=== PATIENT | male | born 1955 | race Caucasian/White ===

== ENCOUNTER 2023-04-24 09:11 | Emergency (ER) | payer MEDICARE, SELFPAY ==
[2023-04-24] VITALS (24 sets, daily range): BP systolic 148–200; BP diastolic 87–104; PULSE 59–76; RESP 10–25; TEMP 36.6; O2SAT 96–100; BMI 27.6
--- NOTE | 2023-04-24 09:29 | ECG_ITS ---
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
--- NOTE | 2023-04-24 09:30 | CT_ITS ---
The [address] [address] Patient Name: СВЕТЛАНА ARTIS MRN: [id number] date: 1955 Sex: M Assigned Patient Location: ER Current Patient Location: ED.MAIN Accession/Order Number: [id number] Exam Date: 04/24/2023 09:45 Report Date: 04/24/2023 10:21 At the request of: RUTH CHRISTOPHER Procedure: CT head/brain wo con CT head without contrast, 04/24/2023. HISTORY: Right-sided numbness. COMPARISON: CT head without contrast, 03/15/2015. TECHNIQUE: Noncontrast axial CT images obtained through the head. Reconstructions obtained in the sagittal and coronal planes. Dose reduction techniques were achieved by using automated exposure control and/or adjustment of mA and/or kV according to patient size and/or use of iterative reconstruction technique. FINDINGS: Paranasal sinuses are clear. Mastoid air cells are clear. Skull base is intact. No skull lesion. Orbital contents are normal. Extracranial soft tissue structures are unremarkable. Mild generalized cerebral volume loss stable. Small chronic lacunar infarct left thalamus measuring 6 mm stable. No subdural fluid collection. No hydrocephalus. No shift of midline. No acute hemorrhage. No masses. Cross matter and white matter differentiation is intact. CT/CT head/brain wo con IMPRESSION: 1. No acute intracranial findings. No hemorrhage. No mass. 2. Small chronic lacunar infarct in the left thalamus measuring 6 mm stable. Electronically authenticated by: LUZ ELENA WALKER Date: 04/24/2023 10:21
--- NOTE | 2023-04-24 09:30 | CT_ITS ---
[address] [address] Patient Name: СВЕТЛАНА ARTIS MRN: [id number] date: 1955 Sex: M Assigned Patient Location: ER Current Patient Location: Accession/Order Number: [id number] Exam Date: 04/24/2023 09:45 Report Date: 04/24/2023 11:10 At the request of: RUTH CHRISTOPHER Procedure: CT cervical spine wo con CT CERVICAL SPINE WITHOUT CONTRAST, 04/24/2023. HISTORY: Right-sided numbness. COMPARISON: None. TECHNIQUE: Noncontrast axial CT images obtained through the cervical spine. Reconstructions were obtained in the sagittal and coronal planes. Dose reduction techniques were achieved by using automated exposure control and/or adjustment of mA and/or kV according to patient size and/or use of iterative reconstruction technique. FINDINGS: Cervical spine alignment normal. No subluxation. Odontoid process is intact. Facet joints are intact. Vertebral body heights are normal. No fractures. C2-C3, mild degenerative disc disease. No significant spinal stenosis or foraminal narrowing. C3-C4, severe degenerative disc disease. Endplate osteophyte complex results in moderate spinal stenosis most prominent on the left side of the spinal canal. Left foraminal uncovertebral osteophyte results in severe left foraminal narrowing. Moderate right foraminal narrowing. C4-C5, moderate degenerative disc disease. No spinal stenosis. Mild facet arthropathy. Mild left foraminal narrowing. C5-C6, severe degenerative disc disease. Endplate osteophyte complex and disc bulge results in moderate spinal canal stenosis. Uncovertebral osteophytes and disc space narrowing result in severe bilateral foraminal narrowing. C6-C7, severe degenerative disc disease. No spinal stenosis. Right foraminal osteophyte complex results in severe right neural foraminal narrowing. C7-T1, severe degenerative disc disease. No spinal stenosis. No foraminal narrowing. No paraspinal soft tissue swelling. No paraspinal mass. CT/CT cervical spine wo con IMPRESSION: 1. No fracture or subluxation. 2. Moderate to severe multilevel degenerative disc disease most severe at C5-C6 and C6-C7. 3. Moderate spinal canal stenosis at C3-C4 and C5-C6. 4. Neural foraminal narrowing at multiple levels as described above. Electronically authenticated by: LUZ ELENA WALKER Date: 04/24/2023 11:10
[2023-04-24 09:49] LABS: Basophils Absolute Auto 0.1 10^3/uL (0.0-0.1); Basophils Percent Auto 0.9 % (0.2-2.0); Eosinophils Absolute Auto 0.1 10^3/uL (0.0-0.7); Eosinophils Percent Auto 1.8 % (0.9-7.0); Hematocrit 42.7 % (42.0-54.0); Hemoglobin 14.8 g/dL (14.0-18.0); Immature Granulocytes Abs Auto 0.02 10^3/uL (0.00-0.03); Immature Granulocytes Pct Auto 0.3 % (0.0-0.5); Lymphocytes Absolute Auto 1.6 10^3/uL (1.2-3.8); Lymphocytes Percent Auto 23.8 % (20.5-60.0); Mean Corpuscular HGB Conc 34.7 g/dL (29.9-35.2); Mean Corpuscular Hemoglobin 31.4 pg (25.9-34.0); Mean Corpuscular Volume 90.5 fL (80.0-94.0); Mean Platelet Volume 9.6 fL (9.5-13.5); Monocytes Absolute Auto 0.5 10^3/uL (0.3-0.8); Monocytes Percent Auto 7.2 % (1.7-12.0); Neutrophils Absolute Auto 4.4 10^3/uL (1.4-6.5); Platelet Count 236 10^3/uL (150-450); Red Blood Count 4.72 10^6/uL (4.70-6.10); Red Cell Distribution Width 12.5 % (11.0-15.0); White Blood Count 6.6 10^3/uL (4.0-11.0)
[2023-04-24 09:58] LABS: Anion Gap 14.8; BUN Creatinine Ratio 8.5; Calcium 8.8 mg/dL (8.5-10.1); Carbon Dioxide 25.4 mmol/L (21.0-32.0); Chloride 104 mmol/L (98-107); Estimated GFR (African America 51 (>=60); Estimated GFR (Non-African Ame 42 (>=60); Glucose 110 mg/dL (74-106); Potassium 4.2 mmol/L (3.5-5.1); Sodium 140 mmol/L (136-145)
--- NOTE | 2023-04-24 11:42 | ED_ITS ---
HPI - General Adult General Chief complaint: Neuro Symptoms/Deficit Stated complaint: RIGHT SIDED NUMBNESS Time Seen by Provider: 04/24/23 09:22 Source: patient Mode of arrival: walk-in Limitations: no limitations History of Present Illness HPI narrative: 67-year-old male presented to the emergency department for numbness and pain in his right arm. This it started last week and he went to another hospital where pat camacho was admitted and had an extensive workup. CT brain, CT angiogram of head and neck were negative. MRI showed old lacunar infarct but no acute strokes. He was felt not to have had a stroke but was placed on aspirin and Plavix. He saw a neurologist today for the 1st time and he was sent here from there because of the symptoms. Blood pressure was also somewhat elevated at the doctor's office. Related Data Previous Rx's Medication Instructions Recorded prednisone 10 mg tablet See Rx Instructions .Route 04/24/23 .COMPLEX #18 tabs Allergies Allergy/AdvReac Type Severity Reaction Status Date / Time No Known Drug Allergies Allergy Verified 04/24/23 09:16 Review of Systems ROS Narrative A ten point review of systems is negative except as noted above. PFSH PFSH Social History Smoking status: Never smoker Exam Narrative Exam Narrative: Nurses note and vital signs reviewed and patient is not hypoxic. General: The patient appears well and in no apparent distress. Patient is resting comfortably on cart. Skin: Warm, dry, no pallor noted. There is no rash noted. Head: Normocephalic, atraumatic Eye: Normal conjunctiva, no drainage Ears, Nose, Mouth, and Throat: oral mucosa is moist. Nares patent. Cardiovascular: Regular Rate and Rhythm Respiratory: Patient is in no distress, no accessory muscle use, lungs are clear to auscultation, no wheezing, rales or rhonchi Back: non-tender GI: soft and nontender Musculoskeletal: The patient has no evidence of calf tenderness, no pitting edema, symmetrical pulses noted bilaterally Neurological: A&O x4, normal speech; hand grasp, biceps, triceps strength all five out of five and symmetric. No motor deficits in his legs. Cranial nerves II through XII intact Psychiatric: Cooperative Constitutional Vital Signs, click to edit/add: Last Vital Signs Temp 97.8 F 04/24/23 09:16 Pulse 62 04/24/23 10:40 Resp 13 04/24/23 10:40 BP 154/93 H 04/24/23 10:30 Pulse Ox 97 04/24/23 10:40 Course Vital Signs Vital signs: Vital Signs Temperature 97.8 F 04/24/23 09:16 Pulse Rate 69 04/24/23 09:16 Respiratory Rate 18 04/24/23 09:16 Blood Pressure 200/100 H 04/24/23 09:16 Pulse Oximetry 99 04/24/23 09:16 Temperature 97.8 F 04/24/23 09:16 Pulse Rate 62 04/24/23 10:40 Respiratory Rate 13 04/24/23 10:40 Blood Pressure 154/93 H 04/24/23 10:30 Pulse Oximetry 97 04/24/23 10:40 Medical Decision Making MDM Narrative Medical decision making narrative: CT brain here shows no acute findings. CT C-spine shows significant degenerative changes and spinal stenosis. My clinical impression is that his symptoms are due to the CT C-spine findings and this was discussed with Dr. Lr. We are in agreement that the patient will be sent home. He'll be placed on short course of steroids and will check his sugar twice a day. He is being referred to neurosurgery. Treatment diagnosis and follow-up were discussed with the patient. Differential Diagnosis Differential Diagnosis: stroke, cervical radiculopathy Medical Records Medical records reviewed: Yes I reviewed the patient's medical records (from [facility]) Lab Data Lab results reviewed: Yes I reviewed the patient's lab results Labs: Lab Results 04/24/23 Range/Units 09:41 WBC 6.6 (4.0-11.0) 10^3/uL RBC 4.72 (4.70-6.10) 10^6/uL Hgb 14.8 (14.0-18.0) g/dL Hct 42.7 (42.0-54.0) % MCV 90.5 (80.0-94.0) fL MCH 31.4 (25.9-34.0) pg MCHC 34.7 (29.9-35.2) g/dL RDW 12.5 (11.0-15.0) % Plt Count 236 (150-450) 10^3/uL MPV 9.6 (9.5-13.5) fL Neut % (Auto) 66.0 (43.0-75.0) % Lymph % (Auto) 23.8 (20.5-60.0) % [place] % (Auto) 7.2 (1.7-12.0) % Eos % (Auto) 1.8 (0.9-7.0) % Baso % (Auto) 0.9 (0.2-2.0) % Neut # (Auto) 4.4 (1.4-6.5) 10^3/uL Lymph # (Auto) 1.6 (1.2-3.8) 10^3/uL [place] # (Auto) 0.5 (0.3-0.8) 10^3/uL Eos # (Auto) 0.1 (0.0-0.7) 10^3/uL Baso # (Auto) 0.1 (0.0-0.1) 10^3/uL Abs Immat Gran (auto) 0.02 (0.00-0.03) 10^3/uL Imm/Tot Granulo (auto) 0.3 (0.0-0.5) % Sodium 140 (136-145) mmol/L Potassium 4.2 (3.5-5.1) mmol/L Chloride 104 (98-107) mmol/L Carbon Dioxide 25.4 (21.0-32.0) mmol/L Anion Gap 14.8 BUN 14.0 (7.0-18.0) mg/dL Creatinine 1.64 H (0.70-1.30) mg/dL Est GFR ( Amer) 51 L (>=60) Est GFR (Non-Af Amer) 42 L (>=60) BUN/Creatinine Ratio 8.5 Glucose 110 H (74-106) mg/dL Calcium 8.8 (8.5-10.1) mg/dL Imaging Data CT brain and CT C-spine: Radiologist's impression: Procedure: CT cervical spine wo con CT CERVICAL SPINE WITHOUT CONTRAST, 04/24/2023. HISTORY: Right-sided numbness. COMPARISON: None. TECHNIQUE: Noncontrast axial CT images obtained through the cervical spine. Reconstructions were obtained in the sagittal and coronal planes. Dose reduction techniques were achieved by using automated exposure control and/or adjustment of mA and/or kV according to patient size and/or use of iterative reconstruction technique. FINDINGS: Cervical spine alignment normal. No subluxation. Odontoid process is intact. Facet joints are intact. Vertebral body heights are normal. No fractures. C2-C3, mild degenerative disc disease. No significant spinal stenosis or foraminal narrowing. C3-C4, severe degenerative disc disease. Endplate osteophyte complex results in moderate spinal stenosis most prominent on the left side of the spinal canal. Left foraminal uncovertebral osteophyte results in severe left foraminal narrowing. Moderate right foraminal narrowing. C4-C5, moderate degenerative disc disease. No spinal stenosis. Mild facet arthropathy. Mild left foraminal narrowing. C5-C6, severe degenerative disc disease. Endplate osteophyte complex and disc bulge results in moderate spinal canal stenosis. Uncovertebral osteophytes and disc space narrowing result in severe bilateral foraminal narrowing. C6-C7, severe degenerative disc disease. No spinal stenosis. Right foraminal osteophyte complex results in severe right neural foraminal narrowing. C7-T1, severe degenerative disc disease. No spinal stenosis. No foraminal narrowing. No paraspinal soft tissue swelling. No paraspinal mass. IMPRESSION: 1. No fracture or subluxation. 2. Moderate to severe multilevel degenerative disc disease most severe at C5-C6 and C6-C7. 3. Moderate spinal canal stenosis at C3-C4 and C5-C6. 4. Neural foraminal narrowing at multiple levels as described above. Electronically authenticated by: LUZ ELENA WALKER Date: 04/24/2023 11:10 Procedure: CT head/brain wo con CT head without contrast, 04/24/2023. HISTORY: Right-sided numbness. COMPARISON: CT head without contrast, 03/15/2015. TECHNIQUE: Noncontrast axial CT images obtained through the head. Reconstructions obtained in the sagittal and coronal planes. Dose reduction techniques were achieved by using automated exposure control and/or adjustment of mA and/or kV according to patient size and/or use of iterative reconstruction technique. FINDINGS: Paranasal sinuses are clear. Mastoid air cells are clear. Skull base is intact. No skull lesion. Orbital contents are normal. Extracranial soft tissue structures are unremarkable. Mild generalized cerebral volume loss stable. Small chronic lacunar infarct left thalamus measuring 6 mm stable. No subdural fluid collection. No hydrocephalus. No shift of midline. No acute hemorrhage. No masses. Cross matter and white matter differentiation is intact. IMPRESSION: 1. No acute intracranial findings. No hemorrhage. No mass. 2. Small chronic lacunar infarct in the left thalamus measuring 6 mm stable. Electronically authenticated by: LUZ ELENA WALKER Date: 04/24/2023 10:21 ECG Data Attestation: I personally reviewed and interpreted this ECG as follows: (EKG on my interpretation shows normal sinus rhythm without acute changes and a rate of 67.) Discharge Plan Discharge Chief Complaint: Neuro Symptoms/Deficit Clinical Impression: Cervical radiculopathy Patient Disposition: Home, Self-Care Time of Disposition Decision: 11:39 Condition: Good Mode of Transportation: Private Vehicle Prescriptions / Home Meds: New prednisone 10 mg tablet See Rx Instructions .ROUTE .COMPLEX Qty: 18 0RF Rx Instructions: 3 by mouth daily for three days then 2 by mouth daily for three days then 1 by mouth daily for three days Instructions: Cervical Radiculopathy (ED) Additional Instructions: Check your blood sugar at least twice a day and discontinue steroids if your blood sugar becomes uncontrolled follow-up with Dr Hampton/Pérez [facility] [phone] Stand Alone Forms: Portal Instructions Referrals: Physician,Non-Staff, MD [Physician] - 1 week
== END 2023-04-24 12:04 | disposition home or self-care (01) ==
PROVIDERS: Emergency Provider Emergency Medicine; PCP Physician Assistant
DX: M54.12 Radiculopathy, cervical region (principal)
CPT/HCPCS: 36415; 70450; 72125; 80048; 85025; 93005; 99285